=== PATIENT | male | born 1970 | race Two or more races ===

== ENCOUNTER 2021-12-01 12:25 | Emergency (ER) | payer OTHER ==
[~2021-12-01] VITALS: Ht 172.7 cm; Wt 86.2 kg
[2021-12-01 12:27] VITALS: BP 102/66
== END 2021-12-01 14:31 | disposition left against medical advice (07) ==
LOC: ER 12:25
DX: T82.534A Leakage of infusion catheter, initial encounter (principal); I10 Essential (primary) hypertension; E78.5 Hyperlipidemia, unspecified
CPT/HCPCS: 71045